=== PATIENT | female | born 1940 ===

== ENCOUNTER 2018-06-01 05:52 | Day surgery (SDC) | payer MEDICARE ==
[2018-05-31 12:33] VITALS: BMI 44.2
[2018-06-01] MEDS ORDERED: Lactated Ringer's 1,000 ML IV ONE ×2 (06:56→11:30)
[2018-06-01] MEDS ORDERED: EPINEPHrine 1 mg/ml (1:1000) Inj ONE ×2 (09:08→09:09)
[2018-06-01] MEDS ORDERED: Lidocaine 1% w Epi 1:100,000 Inj ONE (09:09)
[2018-06-01] MEDS ORDERED: Ropivacaine 0.5% 30ML IV ONE (09:10)
[2018-06-01] MEDS ORDERED: Lidocaine/Epi 1% 1:100000 20 ML IJ ONE (10:57)
[2018-06-01] MEDS ORDERED: EPINEPHrine 1 mg/ml (1:1000) Inj IV ONE (10:57)
--- NOTE | 2018-06-01 11:43 | PCM.ANESB1 ---
Interscalene Block - Brachial Plexus Date of Procedure: 06/01/18 Anesthesiologist: [place] Pre-Procedure Diagnosis: Right rotator cuff tear Post-Procedure Diagnosis: Same Procedure Performed: Interscalene Block of Brachial Plexus Right - Procedure Interscalene Block of Brachial Plexus: This procedure was explained to the patient that it is for post-operative pain management. Consent was obtained after a thorough discussion with the patient regarding the benefits and possible complications of local anesthetic block of the Brachial Plexus at the Interscalene area. The patient was brought to the Operating Room and standard monitors were applied. Time out was held with the circulating nurse to confirm the correct surgery and appropriate block. After applying Oxygen by nasal cannula and administering IV Sedation, the patient's head was gently rotated away from the ___right___operative shoulder and the anterior scalene groove was carefully palpated. The ultrasound transducer was then applied to the skin in the transverse plane and the brachial plexus was visualized lateral to the carotid artery and in between the anterior and middle scalene muscles. After identification,the anterior lateral portion of the neck was prepped with Betadine solution three times and Lidocaine 1% was injected subcutaneously for topical analgesia. At this point, a # 22 gauge Stimuplex 2 inches insulated needle was inserted into the interscalene groove and directed in a caudal and midline direction. The needle was inserted lateral to the ultrasound transducer in-plane towards the brachial plexus in a [id number] direction. Needle advancement was performed carefully under direct ultrasound visualization. Nerve stimulator was used and twitched of the affected extremity including the hand brachialis muscles, biceps and the deltoid was obtained at a current of ___0.4__MA. After repeated negative aspiration,__20___cc of___0.5%__, ropivacaine were injected. Under ultrasound guidance the local anesthetics were observed surrounding the roots of the brachial plexus. The needle was removed intact and sterile dressing was applied. The patient had stable vital signs, was conscious and in no apparent distress. The patient tolerated the interscalene block of the bracheal plexus well with stable vital signs and was prepared for subsequent surgery.
[2018-06-01] MEDS ORDERED: Neostigmine 1:1000 (1 mg/ml) Inj ONE (11:46)
--- NOTE | 2018-06-01 12:11 | PCM.SURG1 ---
Surgeon's Initial Post Op Note - Surgeon's Notes Surgeon: Darlin Michaels MD [employer] Technician: Kelvin Kamara PA-C Type of Anesthesia: General Endo Pre-Operative Diagnosis: Right shoulder Rotoator cuff tear Operative Findings: see op report Post-Operative Diagnosis: same as pre-op dx Operation Performed: Right shoulder arthroscopy, double row rotator cuff repair, subacromial decompression Specimen/Specimens Removed: none Estimated Blood Loss: EBL {In ML}: 4 Date of Surgery/Procedure: 06/01/18 Time of Surgery/Procedure: 11:30
[2018-06-01] MEDS ORDERED: Oxycodone/Acetaminophen 5/325 mg Tab PO PRN (12:12)
[2018-06-01] MEDS ORDERED: HYDROmorphone 0.5 mg/0.5 ml ISec IVP PRN (12:17)
[2018-06-01] MEDS ORDERED: Lactated Ringer's 1,000 ML IV SCH (12:30)
[2018-06-01 14:42] VITALS: O2SAT 96
[2018-06-01 15:52] VITALS: BP 169/73; PULSE 59; RESP 18; TEMP 97.5
--- NOTE | 2018-06-01 21:38 | OP ---
PROCEDURE DATE: 06/01/2018 ATTENDING PHYSICIAN: Darlin Michaels MD MANAGER APPLE: Kelvin Kamara PA-C PREOPERATIVE DIAGNOSES: 1. Right shoulder complete rotator cuff tear. 2. Synovitis. 3. Impingement. 4. Labral tear. POSTOPERATIVE DIAGNOSES: 1. Right shoulder synovitis. 2. Full thickness retracted supraspinatus tear. 3. Degenerative labral tear. 4. 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 5. Biceps tendon tear. 6. Impingement. 7. Bursitis. ANESTHESIA: General interscalene block. PROCEDURE: 1. Right shoulder arthroscopic double row rotator cuff repair. 2. Subacromial decompression with acromioplasty. 3. Subacromial lysis of adhesions. 4. Complete synovectomy. 5. Biceps tenotomy. 6. Arthroscopic chondroplasty of glenoid and humeral head. EBL: 10 mL. SPECIMENS: None. CLOSURE: Primary. FLUIDS: See anesthesia sheet. ANTIBIOTICS: See anesthesia sheet. COMPLICATIONS: None. INDICATIONS: After failing a course of nonoperative therapy, the patient elected to undergo the above procedures. In the office the risks and possible complications of the shoulder arthroscopy were discussed in detail with the patient. These risks include, but are not limited to, continued pain, lack of motion, infection, vascular injury, and nerve injury including axillary nerve dysfunction, reflex sympathetic dystrophy, compartment syndrome, limb loss, and . The patient expressed an understanding of the risks and possible benefits of the procedure, and was also made aware of the alternatives to surgery. An informed consent was obtained, and was checked immediately preop. Procedure 1: The patient was correctly identified in the holding area and the right shoulder was marked with the surgeon's initials. The patient was transported to the operating room and placed in the supine position and general anesthesia and regional interscalene block was used. Exam under anesthesia revealed a passive range of motion of 160 degrees of forward elevation, 60 degrees of external rotation, and 150 degrees of abduction. Stability examination revealed no instability. Procedure 2: The patient was then placed in a beach chair position utilizing the beach chair positioning device. The patient's head was stabilized and the indicated upper extremity was prepped and draped in the standard surgical fashion. The anatomic structures were outlined with a skin marker, and 1% lidocaine with epinephrine was injected into the posterior, anterior, and lateral portal areas. A #21-gauge spinal needle was placed in the glenohumeral joint from the posterior portal and 10 mL of sterile saline was injected into the glenohumeral joint. Return of fluid indicated correct needle placement into the joint. The needle was then withdrawn and a #11 blade was used to make a 1-cm incision at the posterior portal site. Next, the arthroscopic blunt trocar was inserted into the glenohumeral joint. A #21-gauge spinal needle was placed through the anterior rotator interval, and the anterior portal was made with a #11 blade after the spinal needle was withdrawn. A 7-mm cannula was then inserted after the skin incision was made and the arthroscopic probe was then used to examine the internal structures of the glenohumeral joint. With the shoulder in abducted and externally rotated position, the articular surface of the rotator cuff was visualized. The arthroscope and probe were then switched from posterior to anterior. The posterior labrum, posterior capsule, and biceps anchor reflection was then inspected with the arthroscope in the anterior portal position. Examination of the glenohumeral joint revealed: 1. Synovitis. 2. Full thickness retracted supraspinatus tear. 3. Labral tear. 4. Grade 3 chondromalacia of glenoid and humeral head. 5. Biceps tendon tear. Using the probe, the labrum was circumferentially assessed for tear. Tears were noted at anterior, posterior, and superior labrum. Using the 4.0 motorized shaver and radiofrequency probe, the torn edges of the labrum were debrided until stable rim, preventing any further propagation. The full radius shaver was used to mechanically debride loose chondral edges of the humeral head and glenoid, to a stable border. Extreme care was taken to not disrupt the adjacent chondral surface. The edge of the debrided area was probed to ensure chondral stability. Upon careful arthroscopic evaluation of biceps tendon and its anchor site at the labrum, it was noted to be highly frayed and tears not amenable to repair. Due to tissue quality and the patient's age, decision was made to proceed with biceps tenotomy. Using arthroscopic scissors, biceps tenotomy was successfully performed. The loose edges of labrum were debrided using radiofrequency probe and arthroscopic shaver. Excessive glenohumeral synovitis was cleared with a 4.0 mm full radius shaver. The hypertrophic, erythematous synovium was resected. Hemostasis was maintained with the radiofrequency device. Examination of the subacromial space revealed: 1. Impingement. 2. Bursitis. Visualization of the subacromial space was difficult due to excessive bursitis. A bursectomy was performed using a combination of radiofrequency device as well as a 4.0-mm full radius motorized shaver. There were multiples adhesions noted within the subacromial space. Adhesions were found within the anterior, posterior, and lateral gutters. These adhesions were scarred into anterior and posterior portion of rotator cuff limiting range of motion. Using the 4.0-mm motorized shaver and radiofrequency probe, adhesions were debrided and removed. All the bleeding surfaces were coagulated. Afterwards, the shoulder was taken through range of motion and there was a notable improvement in range of motion and unrestrictive excursion of rotator cuff muscle and tendons. The soft tissue on the undersurface of the acromion was debrided utilizing the 4.0-mm full radius shaver and the radiofrequency device was used for hemostasis. At this point, the coracoacromial ligament was released with the radiofrequency device and the acromial branch of the thoracoacromial artery was coagulated with the same instrument. Subacromial decompression was performed with a 4.0-mm conical abel using both the medial portal and the "cutting-block" precision acromioplasty technique from the posterior portal. The undersurface of the acromion was resected to a flat, smooth surface to allow unrestricted excursion of the rotator cuff. After adequate subacromial decompression, attention was then turned to the rotator cuff tear, which was easily visualized after adequate bursectomy had been performed. An auxiliary lateral portal was placed 2 cm posterior to the original lateral portal, after a correct "-man's angle" was determined using a transdeltoid 21 gauge spinal needle. Arthroscopic soft tissue releases were performed using an elevator at the coracohumeral ligament insertion and superior glenoid to free up the rotator cuff to provide adequate excursion to support a repair to the greater tuberosity. Next, the greater tuberosity was gently debrided with a combination of the 4.0 mm straight shaver and radiofrequency device, and the bone was denuded to a bleeding surface using the 4.0-mm abel. The lateral margin of the rotator cuff tear was debrided to a smooth and stable tendon surface using the 4.0-mm shaver. Two 4.5-mm Arthrex corkscrew suture anchors were placed with the proper "-man's angle" into the greater tuberosity, and a mattress suture from each anchor was passed through supraspinatus 10 mm medial to the torn edge. These anchors formed the medial row of the double row repair. The arm was abducted to 70 degrees, and the leading edge of the cuff was drawn to its proper insertion on the greater tuberosity. The #2 FiberWire mattress sutures were tied with standard arthroscopic knot tying techniques - Tma knots and half hitches using a knot pusher. The remaining sutures were secured to the tuberosity with two 4.5-mm PushLock absorbable anchors, which were placed with standard technique into the lateral aspect of the greater tuberosity approximately 1 cm lateral to the medial row anchors. One suture strand from each knot was crossed to the diagonal PushLock anchor along with the suture strand from the corresponding anchor directly medial. This linking of the medial and lateral row formed a "suture bridge" rotator cuff repair. The ends of the remaining sutures were then cut. The shoulder was put through a passive ROM, and the rotator cuff repair was noted to be stable through a ROM of 130/50. No prominence of the suture knots or of rotator cuff tissue was noted to impinge during abduction and internal rotation. The subacromial space was then irrigated with sterile saline, and closure was instituted with sutures. A dressing was placed consisting of Xeroform, 4x4's, ABD pads, and tape. The patient was placed in a sling with an ABD pad in the axilla. The patient was then placed in a supine position and extubated without incident. The patient was transferred to the recovery room in stable condition, having tolerated the procedure well. Postoperatively, the patient will be maintained in an abduction sling, also provided with my rehab protocol, defining the restriction and sling use for 6-8 weeks. Followup in 6 to 8 weeks. The sponge and needle count at the close of the case was correct. The attending surgeon was scrubbed and present for all the critical portions of the case, including all of the intra-articular arthroscopic procedures. During this procedure, I was assisted by Kelvin Kamara PA-C, who assisted in positioning the patient on the operating room table as well as transferring the patient from the operating room table to the recovery room stretcher. In addition, Kelvin Kamara PA-C, assisted me during the actual operative procedure by positioning the patient's extremity to allow for easier arthroscopic access to all areas of the joint. The presence of Kelvin Kamara PA-C, as my operative assistant spa manager, was medically necessary to ensure the utmost safety of the patient in the pre, intra-, and postoperative periods. Darlin Michaels MD
== END 2018-06-01 16:40 | disposition home or self-care (01) ==
LOC: H.OPSURG 05:52
PROVIDERS: ATTEND Orthopaedic Surgery
DX: M75.121 Complete rotator cuff tear or rupture of right shoulder, not specified as traumatic (principal); M65.811 Other synovitis and tenosynovitis, right shoulder; M19.90 Unspecified osteoarthritis, unspecified site; I50.9 Heart failure, unspecified; E78.5 Hyperlipidemia, unspecified; I11.0 Hypertensive heart disease with heart failure; K21.9 Gastro-esophageal reflux disease without esophagitis; E66.01 Morbid (severe) obesity due to excess calories; Z86.718 Personal history of other venous thrombosis and embolism
CPT/HCPCS: 29826; 29827; C1713; J0171; J0690; J1100; J2001; J2250; J2405; J2704; J2710; J2765; J3010; J7030; J7120